=== PATIENT | male | born 1965 ===

== ENCOUNTER 2017-01-17 20:52 | Inpatient (IN) | payer OTHER ==
[2017-01-17] MEDS ORDERED: Sodium Chloride 0.9% 1,000 ML IV STA (21:18)
--- NOTE | 2017-01-17 21:21 | ED PDOC ---
HPI: Abdomen Time Seen by Provider: 01/17/17 21:11 Chief Complaint (Nursing): Abdominal Pain Chief Complaint (Provider): abdominal pain History Per: Patient History/Exam Limitations: no limitations Onset/Duration Of Symptoms: Days (2), Waxing/Waning Current Symptoms Are (Timing): Still Present Location Of Pain/Discomfort: Suprapubic Quality Of Discomfort: "Pain" Associated Symptoms: Urinary Symptoms Last Bowel Movement: Today Additional History Per: Patient Additional Complaint(s): 51 y/o male presents with intermittent suprapubic abdominal pain x 2 days. Associated chills, with an episode of thin, yellow stool this am. Denies fever, nausea/vomiting, chest pain, shortness of breath, palpitations, recent travel, sick contacts. Tylenol last taken this am. Past Medical History Reviewed: Historical Data, Nursing Documentation, Vital Signs Vital Signs: Last Vital Signs Temp 100.7 F H 01/17/17 20:55 Pulse 118 H 01/17/17 20:55 Resp 18 01/17/17 20:55 BP 143/79 01/17/17 20:55 Pulse Ox 99 01/18/17 00:58 - Medical History PMH: No Chronic Diseases - Surgical History Surgical History: No Surg Hx - Family History Family History: States: Unknown Family Hx - Living Arrangements Living Arrangements: With Family - Allergies Allergies/Adverse Reactions: Allergies Allergy/AdvReac Type Severity Reaction Status Date / Time No Known Allergies Allergy Verified 01/17/17 20:54 Review of Systems ROS Statement: Except As Marked, All Systems Reviewed And Found Negative Gastrointestinal: Positive for: Abdominal Pain Physical Exam - Reviewed Nursing Documentation Reviewed: Yes Vital Signs Reviewed: Yes - Physical Exam Appears: Positive for: Well, Non-toxic, No Acute Distress Head Exam: Positive for: ATRAUMATIC, NORMAL INSPECTION, NORMOCEPHALIC Skin: Positive for: Normal Color Eye Exam: Positive for: Normal appearance ENT: Positive for: Normal ENT Inspection Cardiovascular/Chest: Positive for: Regular Rate, Rhythm Respiratory: Positive for: Normal Breath Sounds Gastrointestinal/Abdominal: Positive for: Bowel Sounds, Soft, Tenderness ( suprapubic) Back: Positive for: Normal Inspection Extremity: Positive for: Normal ROM Neurologic/Psych: Positive for: Alert, Oriented - Laboratory Results Result Diagrams: 01/17/17 22:24 01/17/17 22:24 - ECG ECG: Positive for: Viewed By Me (reviewed by ED attending) ECG Rhythm: Positive for: Sinus Rhythm O2 Sat by Pulse Oximetry: 99 Pulse Ox Interpretation: Normal - Radiology X-Ray: Viewed By Me X-Ray Interpretation: No Acute Disease - Progress ED Course And Treament: labs, urine, CT abd/pelvis, PO tylenol, IV toradol EXAM: CT Abdomen and Pelvis With Intravenous Contrast CLINICAL HISTORY: 51 years old, male; Pain; Abdominal pain; Localized; Lower; Additional info: Lower abdominal pain TECHNIQUE: Axial computed tomography images of the abdomen and pelvis with intravenous contrast. This CT exam was performed using one or more of the following dose reduction techniques : automated exposure control, adjustment of the mA and/or kV according to patient size, and/ or use of iterative reconstruction technique. Coronal and sagittal reformatted images were created and reviewed. CONTRAST: 95 mL of [id number] administered intravenously. COMPARISON: No relevant prior studies available. FINDINGS: Lower thorax: The bilateral lung bases are clear. ABDOMEN: Liver: No acute findings. Gallbladder and bile ducts: The gallbladder is decompressed. No calcified stones. No significant intra- or extrahepatic biliary ductal dilation. Pancreas: Enhances homogeneously. No ductal dilation. No discrete mass. Fatty atrophy is detected. Spleen: No acute findings. Adrenals: No acute findings. Kidneys and ureters: No acute findings. No hydronephrosis or renal calculi. No discrete solid mass. PELVIS: Bladder: No acute findings. Reproductive: No acute findings. Appendix: The air filled appendix is of normal caliber . ABDOMEN and PELVIS: Stomach and bowel: No obstruction. Mural thickening with trace surrounding inflammatory change is identified within the sigmoid colon - findings suggestive of acute/early diverticulitis. No free air or drainable fluid collection is identified. Hazy infiltration of the root of the mesentery is also detected. Peritoneum: As above. Lymph nodes: Minimally enlarged lymph nodes within the retroperitoneum and at the root of the mesentery, a nonspecific finding. Vasculature: Unremarkable. Bones: No acute fracture. IMPRESSION: Sigmoid diverticulitis, without perforation or a drainable fluid collection. IV cipro, IV flagyl ordered Dr. Mejia discussed case with Dr. George, medical service on-call, for admission. Disposition - Clinical Impression Clinical Impression: Diverticulitis - Patient ED Disposition Is Patient to be Admitted: Yes - Disposition Disposition Time: 00:58 Condition: FAIR
[2017-01-17] MEDS ORDERED: Iohexol 240 (50 ml) PO ONE (21:57)
[2017-01-17 22:29] LABS: BASO # 0.1 K/uL (0.0-0.2); BASO % 0.7 % (0.0-2.0); EOS # 0.1 K/uL (0.0-0.7); EOS % 0.9 % (0.0-4.0); LYMPH # 2.4 K/uL (1.0-4.3); LYMPH % 18.1 % (20.0-40.0); MEAN CELL VOLUME 86.6 fl (80.0-94.0); MEAN CORPUSCULAR HEMOGLOBIN 29.6 pg (27.0-31.0); MEAN CORPUSCULAR HGB CONC 34.2 g/dL (33.0-37.0); MEAN PLATELET VOLUME 8.7 fl (7.2-11.7); MONO # 1.4 K/uL (0.0-0.8); MONO % 10.9 % (0.0-10.0); NEUT # 9.2 K/uL (1.8-7.0); NEUT % 69.4 % (50.0-75.0); RBC 5.05 Mil/uL (4.40-5.90); RED CELL DISTRIBUTION WIDTH 13.3 % (11.5-14.5); WHITE BLOOD COUNT 13.3 K/uL (4.8-10.8)
[2017-01-17 23:01] LABS: ALB/GLOB RATIO 1.2 (1.0-2.1); ALBUMIN 4.4 g/dL (3.5-5.0); ALT/SGPT 19 U/L (21-72); AST/SGOT 29 U/L (17-59); BLOOD UREA NITROGEN 13 mg/dl (9-20); CALCIUM 9.2 mg/dL (8.4-10.2); GFR AFRICAN-AMERICAN > 60; GFR NON-AFRICAN AMERICAN > 60
[2017-01-17] MEDS ORDERED: Sodium Chloride 0.9% 50 ML IV ONE (23:38)
[2017-01-17] MEDS ORDERED: Iohexol 300 100 ML IJ ONE (23:38)
[2017-01-17 23:43] LABS: URINE BILIRUBIN NEGATIVE (NEGATIVE); URINE BLOOD NEGATIVE (NEGATIVE); URINE CLARITY CLEAR (Clear); URINE COLOR STRAW (YELLOW); URINE GLUCOSE (UA) NEG (Normal); URINE LEUKOCYTE ESTERASE NEG Leu/uL (Negative); URINE NITRATE NEGATIVE (NEGATIVE); URINE PROTEIN NEGATIVE (NEGATIVE); URINE UROBILINOGEN 0.2-1.0 mg/dL (0.2-1.0)
--- NOTE | 2017-01-18 00:33 | CT ---
EXAM: CT Abdomen and Pelvis With Intravenous Contrast CLINICAL HISTORY: 51 years old, male; Pain; Abdominal pain; Localized; Lower; Additional info: Lower abdominal pain TECHNIQUE: Axial computed tomography images of the abdomen and pelvis with intravenous contrast. This CT exam was performed using one or more of the following dose reduction techniques: automated exposure control, adjustment of the mA and/or kV according to patient size, and/or use of iterative reconstruction technique. Coronal and sagittal reformatted images were created and reviewed. CONTRAST: 95 mL of [id number] administered intravenously. COMPARISON: No relevant prior studies available. FINDINGS: Lower thorax: The bilateral lung bases are clear. ABDOMEN: Liver: No acute findings. Gallbladder and bile ducts: The gallbladder is decompressed. No calcified stones. No significant intra- or extrahepatic biliary ductal dilation. Pancreas: Enhances homogeneously. No ductal dilation. No discrete mass. Fatty atrophy is detected. Spleen: No acute findings. Adrenals: No acute findings. Kidneys and ureters: No acute findings. No hydronephrosis or renal calculi. No discrete solid mass. PELVIS: Bladder: No acute findings. Reproductive: No acute findings. Appendix: The air filled appendix is of normal caliber . ABDOMEN and PELVIS: Stomach and bowel: No obstruction. Mural thickening with trace surrounding inflammatory change is identified within the sigmoid colon - findings suggestive of acute/early diverticulitis. No free air or drainable fluid collection is identified. Hazy infiltration of the root of the mesentery is also detected. Peritoneum: As above. Lymph nodes: Minimally enlarged lymph nodes within the retroperitoneum and at the root of the mesentery, a nonspecific finding. Vasculature: Unremarkable. Bones: No acute fracture. IMPRESSION: Sigmoid diverticulitis, without perforation or a drainable fluid collection.
[2017-01-18] MEDS ORDERED: Ciprofloxacin 400mg/200ml D5W 400 MG/200 ML BAG IV ONE (00:47)
[2017-01-18] MEDS ORDERED: metroNIDAZOLE 500mg/100ml NS 100 ML IV STA (00:47)
[2017-01-18] MEDS ORDERED: Ciprofloxacin 400mg/200ml D5W 400 MG/200 ML BAG IVPB ONE (01:17)
[2017-01-18] MEDS ORDERED: Sodium Chloride 0.9% 1,000 ML IV STA (03:33)
[2017-01-18] MEDS: Sodium Chloride 0.9% 1,000 ML IV SCH ×2 (06:30→17:50)
[2017-01-18] MEDS: Insulin Lispro (humaLOG) 100 Units/ml Inj SC SCH ×4 (07:30→22:32)
--- NOTE | 2017-01-18 07:48 | CARD ---
APPROVED REPORT EKG Measurement Heart [id number] MA [id number] <Conclusion> Normal sinus rhythm Normal ECG
[2017-01-18] MEDS ORDERED: FENOFIBRATE 134 MG PO SCH (09:00)
[2017-01-18] MEDS ORDERED: metroNIDAZOLE 500mg/100ml NS 100 ML IVPB SCH (09:00)
[2017-01-18] MEDS: Ciprofloxacin 200mg/100ml D5W 100 ML IVPB SCH ×2 (10:57→22:11)
--- NOTE | 2017-01-18 15:01 | RAD ---
HISTORY: admit COMPARISON: None. FINDINGS: LUNGS: No active pulmonary disease. PLEURA: No significant pleural effusion identified, no pneumothorax apparent. CARDIOVASCULAR: No radiographic findings to suggest acute or significant cardiovascular disease. OSSEOUS STRUCTURES: No significant abnormalities. VISUALIZED UPPER ABDOMEN: Normal. OTHER FINDINGS: None. IMPRESSION: No active disease.
[2017-01-18] MEDS: Enoxaparin 40 mg Syringe SC SCH (15:03)
--- NOTE | 2017-01-18 23:38 | CP.PCM.HP ---
History of Present Illness - History of Present Illness History of Present Illness: CC: Abdominal Pain HPI: A 51 y/o male presents with intermittent suprapubic abdominal pain x 2 days. Associated chills, with an episode of thin, yellow stool this am. Denies fever, nausea/vomiting, chest pain, shortness of breath, palpitations, recent travel, sick contacts. Tylenol last taken this am. Present on Admission - Present on Admission Any Indicators Present on Admission: No History of DVT/PE: No History of Uncontrolled Diabetes: No Urinary Catheter: No Decubitus Ulcer Present: No Review of Systems - Review of Systems All systems: reviewed and no additional remarkable complaints except - Gastrointestinal Gastrointestinal: As Per HPI Past Patient History - Past Medical History & Family History Past Medical History?: Yes - Past Social History Smoking Status: Never Smoked Alcohol: None Drugs: Denies - CARDIAC Hx Cardiac Disorders: Yes Hx Hypertension: Yes - PULMONARY Hx Respiratory Disorders: No - NEUROLOGICAL Hx Neurological Disorder: No - HEENT Hx HEENT Problems: No - RENAL Hx Chronic Kidney Disease: No - ENDOCRINE/METABOLIC Hx Endocrine Disorders: Yes Hx Diabetes Mellitus Type 2: Yes - HEMATOLOGICAL/ONCOLOGICAL Hx Blood Disorders: No - INTEGUMENTARY Hx Dermatological Problems: No - MUSCULOSKELETAL/RHEUMATOLOGICAL Hx Musculoskeletal Disorders: No Hx Falls: No - GASTROINTESTINAL Hx Gastrointestinal Disorders: No - GENITOURINARY/GYNECOLOGICAL Hx Genitourinary Disorders: No - PSYCHIATRIC Hx Psychophysiologic Disorder: No Hx Substance Use: No - SURGICAL HISTORY Hx Surgeries: No - ANESTHESIA Hx Anesthesia: No Hx Anesthesia Reactions: No Hx Malignant Hyperthermia: No Has any member of the family had a problem w/ anesthesia?: No Meds Home Medications: Home Medication List Medication Instructions Recorded Confirmed Type Ciprofloxacin HCl [Cipro] 500 mg PO Q12 #20 tab 01/19/17 Rx metroNIDAZOLE [Flagyl] 500 mg PO Q8 #30 tab 01/19/17 Rx Allergies/Adverse Reactions: Allergies Allergy/AdvReac Type Severity Reaction Status Date / Time No Known Allergies Allergy Verified 01/17/17 20:54 Physical Exam - Constitutional Appears: No Acute Distress - Head Exam Head Exam: ATRAUMATIC, NORMAL INSPECTION, NORMOCEPHALIC - Eye Exam Eye Exam: EOMI, Normal appearance, PERRL Pupil Exam: NORMAL ACCOMODATION, PERRL - ENT Exam ENT Exam: Mucous Membranes Moist, Normal Exam - Neck Exam Neck exam: Positive for: Full Rom, Normal Inspection - Respiratory Exam Respiratory Exam: Clear to Auscultation Bilateral, NORMAL BREATHING PATTERN - Cardiovascular Exam Cardiovascular Exam: REGULAR RHYTHM, +S1, +S2 - GI/Abdominal Exam GI & Abdominal Exam: Guarding, Normal Bowel Sounds, Tenderness (LLQ). absent: Rebound, Rigid - Extremities Exam Extremities exam: Positive for: normal inspection - Back Exam Back exam: NORMAL INSPECTION. absent: CVA tenderness (L), CVA tenderness (R) - Neurological Exam Neurological exam: Alert, CN II-XII Intact, Normal Gait, Oriented x3, Reflexes Normal - Psychiatric Exam Psychiatric exam: Normal Affect, Normal Mood - Skin Skin Exam: Dry, Intact, Normal Color, Warm Results - Vital Signs Recent Vital Signs: Last Vital Signs Temp 98.2 F 01/18/17 16:13 Pulse 70 01/18/17 16:13 Resp 18 01/18/17 16:13 BP 127/84 01/18/17 16:13 Pulse Ox 97 01/18/17 16:13 - Labs Result Diagrams: 01/19/17 06:05 01/19/17 06:05 Labs: Laboratory Results - last 24 hr 01/18/17 01/18/17 01/18/17 07:01 11:06 15:56 POC Glucose (mg/dL) 119 H 226 H 116 H 01/18/17 21:16 POC Glucose (mg/dL) 150 H - Imaging and Cardiology CT scan - abdomen/Pelvis: Status: Report reviewed by me Additional comment: IMPRESSION: Sigmoid diverticulitis, without perforation or a drainable fluid collection. Assessment & Plan (1) Diverticulitis Assessment and Plan: IVF IV CIprofloxacin and IV Flagyl Pain Meds pRN Bood ANd urine Cultures Stool Work UP Status: Acute (2) Essential hypertension Status: Acute
[2017-01-19 07:04] LABS: HEMOGLOBIN 13.6 g/dL (12.0-18.0); MEAN CELL VOLUME 86.4 fl (80.0-94.0); MEAN CORPUSCULAR HEMOGLOBIN 29.7 pg (27.0-31.0); MEAN CORPUSCULAR HGB CONC 34.3 g/dL (33.0-37.0); RBC 4.59 Mil/uL (4.40-5.90); WHITE BLOOD COUNT 7.2 K/uL (4.8-10.8)
[2017-01-19 07:13] LABS: BLOOD UREA NITROGEN 7 mg/dl (9-20); CALCIUM 8.9 mg/dL (8.4-10.2); GFR AFRICAN-AMERICAN > 60; GFR NON-AFRICAN AMERICAN > 60
[2017-01-19 07:34] VITALS: BP 114/76; PULSE 69; RESP 18; TEMP 98.2; O2SAT 97
[2017-01-19] MEDS: Ciprofloxacin 200mg/100ml D5W 100 ML IVPB SCH (08:39)
[2017-01-19] MEDS: Insulin Lispro (humaLOG) 100 Units/ml Inj SC SCH (08:40)
[2017-01-19] MEDS: Enoxaparin 40 mg Syringe SC SCH (08:40)
[2017-01-19 10:19] LABS: C DIFF TOXIN A B NEGATIVE (NEGATIVE)
[2017-01-19 19:58] LABS: FECAL LEUKOCYTES NEGATIVE (NEGATIVE)
--- NOTE | 2017-01-20 00:18 | CP.PCM.DIS ---
Provider - Provider Date of Admission: 01/18/17 00:49 Attending physician: Jada George MD Time Spent in preparation of Discharge (in minutes): 25 Hospital Course - Lab Results Lab Results: Most Recent Lab Values WBC 7.2 K/uL (4.8-10.8) 01/19/17 06:05 RBC 4.59 Mil/uL (4.40-5.90) 01/19/17 06:05 Hgb 13.6 g/dL (12.0-18.0) 01/19/17 06:05 Hct 39.6 % (35.0-51.0) 01/19/17 06:05 MCV 86.4 fl (80.0-94.0) 01/19/17 06:05 MCH 29.7 pg (27.0-31.0) 01/19/17 06:05 MCHC 34.3 g/dL (33.0-37.0) 01/19/17 06:05 RDW 13.0 % (11.5-14.5) 01/19/17 06:05 Plt Count 239 K/uL (130-400) 01/19/17 06:05 MPV 8.7 fl (7.2-11.7) 01/17/17 22:24 Neut % (Auto) 69.4 % (50.0-75.0) 01/17/17 22:24 Lymph % (Auto) 18.1 % (20.0-40.0) L 01/17/17 22:24 [place] % (Auto) 10.9 % (0.0-10.0) H 01/17/17 22:24 Eos % (Auto) 0.9 % (0.0-4.0) 01/17/17 22:24 Baso % (Auto) 0.7 % (0.0-2.0) 01/17/17 22:24 Neut # 9.2 K/uL (1.8-7.0) H 01/17/17 22:24 Lymph # 2.4 K/uL (1.0-4.3) 01/17/17 22:24 [place] # 1.4 K/uL (0.0-0.8) H 01/17/17 22:24 Eos # 0.1 K/uL (0.0-0.7) 01/17/17 22:24 Baso # 0.1 K/uL (0.0-0.2) 01/17/17 22:24 Sodium 139 mmol/l (132-148) 01/19/17 06:05 Potassium 4.0 MMOL/L (3.6-5.0) 01/19/17 06:05 Chloride 106 mmol/L (98-107) 01/19/17 06:05 Carbon Dioxide 26 mmol/L (22-30) 01/19/17 06:05 Anion Gap 12 (10-20) 01/19/17 06:05 BUN 7 mg/dl (9-20) L 01/19/17 06:05 Creatinine 0.8 mg/dL (0.8-1.5) 01/19/17 06:05 Est GFR ( Amer) > 60 01/19/17 06:05 Est GFR (Non-Af Amer) > 60 01/19/17 06:05 POC Glucose (mg/dL) 122 mg/dL (65-110) H 01/19/17 10:46 Random Glucose 145 mg/dL (75-110) H 01/19/17 06:05 Lactic Acid 1.3 MMOL/L (0.7-2.1) 01/17/17 22:24 Calcium 8.9 mg/dL (8.4-10.2) 01/19/17 06:05 Total Bilirubin 0.9 mg/dl (0.2-1.3) 01/17/17 22:24 AST 29 U/L (17-59) 01/17/17 22:24 ALT 19 U/L (21-72) L 01/17/17 22:24 Alkaline Phosphatase 105 U/L (38-126) 01/17/17 22:24 Total Protein 7.9 G/DL (6.3-8.2) 01/17/17 22:24 Albumin 4.4 g/dL (3.5-5.0) 01/17/17 22:24 Globulin 3.5 gm/dL (2.2-3.9) 01/17/17 22:24 Albumin/Globulin Ratio 1.2 (1.0-2.1) 01/17/17 22:24 Urine Color Straw (YELLOW) 01/17/17 23:37 Urine Clarity Clear (Clear) 01/17/17 23:37 Urine pH 6.0 (5.0-8.0) 01/17/17 23:37 Ur Specific [place] 1.006 (1.003-1.030) 01/17/17 23:37 Urine Protein Negative mg/dL (NEGATIVE) 01/17/17 23:37 Urine Glucose (UA) Neg mg/dL (Normal) 01/17/17 23:37 Urine Ketones Negative mg/dL (NEGATIVE) 01/17/17 23:37 Urine Blood Negative (NEGATIVE) 01/17/17 23:37 Urine Nitrate Negative (NEGATIVE) 01/17/17 23:37 Urine Bilirubin Negative (NEGATIVE) 01/17/17 23:37 Urine Urobilinogen 0.2-1.0 mg/dL (0.2-1.0) 01/17/17 23:37 Ur Leukocyte Esterase Neg [place]/uL (Negative) 01/17/17 23:37 Urine RBC (Auto) 1 /hpf (0-3) 01/17/17 23:37 Urine Microscopic WBC < 1 /hpf (0-5) 01/17/17 23:37 Stool Leukocytes, Qual Negative (NEGATIVE) 01/19/17 08:16 C. difficile Ag & Toxin Negative (NEGATIVE) 01/19/17 08:16 - Hospital Course Hospital Course: Given IVF, IV Cipro and PO Flagyl improved significantly SX/SX and discahrged home. Discharge Exam - Head Exam Head Exam: ATRAUMATIC, NORMAL INSPECTION, NORMOCEPHALIC - Eye Exam Eye Exam: EOMI, Normal appearance, PERRL Pupil Exam: NORMAL ACCOMODATION, PERRL - Respiratory Exam Respiratory Exam: Clear to PA & Lateral - Cardiovascular Exam Cardiovascular Exam: +S1, +S2 - Neurological Exam Neurological exam: Alert, CN II-XII Intact, Normal Gait, Oriented x3, Reflexes Normal - Psychiatric Exam Psychiatric exam: Normal Affect, Normal Mood - Skin Skin Exam: Dry, Intact, Normal Color, Warm Discharge Plan - Discharge Medications Prescriptions: Ciprofloxacin HCl [Cipro] 500 mg PO Q12 #20 tab metroNIDAZOLE [Flagyl] 500 mg PO Q8 #30 tab - Follow Up Plan Condition: FAIR Disposition: HOME/ ROUTINE Instructions: Diverticulitis (DC), Diverticulitis Diet (DC), Hypertension (DC) , Hypertension (GEN) Additional Instructions: patient cleared for discharge to Home today by cont. cipro/ flagyl Rx for meds provided f/u with in 1 week Referrals: Jada George MD [Staff Provider] -
== END 2017-01-19 13:36 | disposition home or self-care (01) | DRG 183 ==
LOC: H.ER 20:52 → H.ERHOLD 01-18 00:49 → H.MEDSURG1 01-18 03:53
PROVIDERS: ADMIT Internal Medicine; ATTEND Internal Medicine
DX: K57.32 Diverticulitis of large intestine without perforation or abscess without bleeding (principal); I10 Essential (primary) hypertension; E11.9 Type 2 diabetes mellitus without complications